=== PATIENT | female | born 1965 | race Caucasian/White ===

== ENCOUNTER 2016-12-17 12:54 | Emergency (ER) | payer OTHER ==
[~2016-12-17] VITALS: Ht 172.7 cm; Wt 70.3 kg
[~2016-12-17 12:54] MED LIST: CODEINE PHOSPHA1 TAB PO; FLAGYL IV; FLAGYL250 MG PO; LEVAQUIN750 MG PO; METFORMIN500 MG PO; PREVACID30 MG PO; TOPAMAX25 MG PO; ZOCOR20 MG PO
[2016-12-17 12:59] VITALS: BP 133/82
--- NOTE | 2016-12-17 13:00 | NUR ---
PATIENT PRESENTS TO ED WITH C/O OF CHEST PAIN AND HEADACHE . DENIES N/V/D; SKIN IS PINK/WARM/DRY; AAOX4 WITH EVEN AND STEADY GAIT; LUNGS CLEAR BL; HR EVEN AND REGULAR; PT DENIES ANY FEVER SOB, OR COUGH AT THIS TIME; PATIENT STATES PAIN OF 9/10 AT THIS TIME; VSS; PATIENT POSITIONED FOR COMFORT; HOB ELEVATED; BEDRAILS UP X2; BED DOWN. ER MD MADE AWARE OF PT STATUS.
[2016-12-17] MEDS ORDERED: ASPIRIN 81 MG TAB.CHEW PO ONE (14:10)
[2016-12-17] MEDS ORDERED: fentaNYL 0.05 MG/ML VIAL IVP ONE (15:15)
[2016-12-17] MEDS ORDERED: NACL 0.9% 1,000 ML IV ONE (15:15)
--- NOTE | 2016-12-17 15:59 | NUR ---
PATIENT LEFT FOR CT
[2016-12-17 18:20] VITALS: BP 122/69
--- NOTE | 2016-12-17 18:20 | NUR ---
Patient discharged with v/s stable. Written and verbal after care instructions given and explained. Patient alert, oriented and verbalized understanding of instructions. Ambulatory with steady gait. All questions addressed prior to discharge. ID band removed. Patient advised to follow up with PMD. Rx of OMEPRAZOLE AND TRAMADOL given. Patient educated on indication of medication including possible reaction and side effects. Opportunity to ask questions provided and answered.
== END 2016-12-17 18:20 | disposition home or self-care (01) ==
LOC: MED 12:54
DX: K29.70 Gastritis, unspecified, without bleeding (principal); R03.0 Elevated blood-pressure reading, without diagnosis of hypertension; E11.9 Type 2 diabetes mellitus without complications; Z88.8 Allergy status to other drugs, medicaments and biological substances
CPT/HCPCS: 36415; 71010; 71250; 74150; 80053; 84484; 85025; 85610; 85730; 93005; 96361; 96374; 99285; J3010; J7030

== ENCOUNTER 2017-02-20 21:25 | Emergency (ER) | payer OTHER ==
[~2017-02-20] VITALS: Ht 172.7 cm; Wt 78.5 kg
[~2017-02-20 21:25] MED LIST changes: -CODEINE PHOSPHA1 TAB PO; -FLAGYL IV; -FLAGYL250 MG PO; +LANS30EC3 PO; -LEVAQUIN750 MG PO; +LEVO750T2 PO; +METF500T64 PO; -METFORMIN500 MG PO; +METR250T2 PO; -PREVACID30 MG PO; +SIMV20TA1 PO; -TOPAMAX25 MG PO; +TOPI25TA10 PO; -ZOCOR20 MG PO; +[UNRECOGNIZED DRUG - CODE] IV
[2017-02-20 21:31] VITALS: BP 94/61
[2017-02-20 22:17] LABS: BASOPHILS % (AUTO) 0.5 % (0.0-2.0); EOSINOPHILS # (AUTO) 0.3 K/uL (0-0.4); EOSINOPHILS % (AUTO) 3.3 % (0.0-4.0); HEMATOCRIT 41.7 % (36-48); HEMOGLOBIN 13.9 g/dL (12.0-16.0); LYMPHOCYTES # (AUTO) 1.8 K/uL (2.5-16.5); LYMPHOCYTES % (AUTO) 19.6 % (20.5-51.1); MEAN CORPUSCULAR HEMOGLOBIN 32 pg (27-31); MEAN CORPUSCULAR HGB CONC 33 g/dL (33-37); MEAN CORPUSCULAR VOLUME 94 fL (80-94); MONOCYTES # (AUTO) 0.5 K/uL (0.8-1.0); MONOCYTES % (AUTO) 5.2 % (1.7-9.3); NEUTROPHILS # (AUTO) 6.7 K/uL (1.8-7.7); NEUTROPHILS % (AUTO) 71.4 % (42.2-75.2); PLATELET COUNT (AUTO) 219 K/uL (140-450); RED BLOOD CELL COUNT(AUTO) 4.42 MIL/uL (4.20-5.40); RED CELL DISTRIBUTION WIDTH 12.4 % (11.6-13.7); WHITE BLOOD COUNT (AUTO) 9.3 K/uL (4.8-10.8)
[2017-02-20 22:29] LABS: APPEARANCE,URINE CLEAR (CLEAR); BILIRUBIN,URINE NEGATIVE (NEGATIVE); BLOOD, URINE NEGATIVE (NEGATIVE); COLOR,URINE YELLOW (YELLOW); LEUKOCYTE ESTERASE ,URINE NEGATIVE (NEGATIVE); NITRITE, URINE NEGATIVE (NEGATIVE); PROTEIN,URINE NEGATIVE (NEGATIVE); UGLUCOSE NEGATIVE (NEGATIVE); UROBILINOGEN,URINE 0.2 EU/dL (0.2 - 1)
[2017-02-20 22:32] LABS: ANION GAP 15.3 (8-16); CALCIUM 8.6 mg/dL (8.5-10.1); CARBON DIOXIDE 24.2 mmol/L (21-32); CREATININE 0.9 mg/dL (0.6-1.3); POTASSIUM 3.5 mmol/L (3.5-5.1)
[2017-02-20 22:38] LABS: ALBUMIN 3.8 g/dL (3.4-5.0); TOTAL BILIRUBIN 0.5 mg/dL (0.0-1.0); TOTAL PROTEIN, SERUM 7.9 g/dL (6.4-8.2)
[2017-02-20 22:50] LABS: RBC,URINE 0-5 (RARE) /HPF (0-5)
[2017-02-20 22:51] LABS: BACTERIA,URINE OCCASSIONAL /HPF (None Seen); MUCUS,URINE 1+ /LPF (None Seen)
--- NOTE | 2017-02-21 01:03 | NUR ---
TO ER BED 4
[2017-02-21] MEDS ORDERED: KETOROLAC 60 MG/2 ML VIAL IM ONE (02:00)
[2017-02-21] MEDS ORDERED: ONDANSETRON 4 MG ODT PO ONE (02:00)
[2017-02-21 02:41] VITALS: BP 102/50
--- NOTE | 2017-02-21 02:41 | NUR ---
Patient discharged with v/s stable. Written and verbal after care instructions given and explained. Patient alert, oriented and verbalized understanding of instructions. Ambulatory with steady gait. All questions addressed prior to discharge. ID band removed. Patient advised to follow up with PMD. Rx of ZOFRAN/MOTRIN/CIPRO/NORCO AND IMMODIUM given. Patient educated on indication of medication including possible reaction and side effects. Opportunity to ask questions provided and answered.
== END 2017-02-21 02:41 | disposition home or self-care (01) ==
LOC: MED 21:25
DX: R10.13 Epigastric pain (principal); R11.2 Nausea with vomiting, unspecified; R19.7 Diarrhea, unspecified; E11.9 Type 2 diabetes mellitus without complications; Z88.8 Allergy status to other drugs, medicaments and biological substances
CPT/HCPCS: 36415; 74176; 80053; 81001; 81025; 82948; 83690; 85025; 87086; 96372; 99285; J1885; S0119

== ENCOUNTER 2018-02-13 23:30 | Emergency (ER) | payer OTHER ==
[~2018-02-13] VITALS: Ht 172.7 cm; Wt 83.0 kg
[~2018-02-13 23:30] MED LIST changes: +ATOR10TA PO; +GLU500 PO; -LANS30EC3 PO; -LEVO750T2 PO; -METF500T64 PO; -SIMV20TA1 PO; +TOP100 PO; -TOPI25TA10 PO; -[UNRECOGNIZED DRUG - CODE] IV
[2018-02-13 23:36] VITALS: BP 118/72
--- NOTE | 2018-02-13 23:48 | NUR ---
TO ER BED 02
--- NOTE | 2018-02-13 23:50 | NUR ---
PATIENT IS A 52 Y/O FEMALE WHO PRESENTS TO THE ED C/O ABD PAIN. PT STATES THAT HER STOMACH HAS BEEN BOTHERING HER FOR 2 WEEKS. PT REPORTS 10/10 ACHING DIFFUSE ABD PAIN THAT RADIATES TO THE BACK. PT DENIES CP, SOB, REPORTS N/V/D. PT AAOX4, RR EVEN/UNLABORED. PT REPOSITIONED FOR COMFORT, BED IN LOWEST POSITION. ER MD DR. MARTINEZ NOTIFIED. WILL CONTINUE TO MONITOR.
[2018-02-13] MEDS ORDERED: NACL 0.9% 1,000 ML IV SCH (23:57)
[2018-02-14] MEDS ORDERED: ONDANSETRON 4 MG/2 ML VIAL IVP ONE
[2018-02-14] MEDS ORDERED: KETOROLAC 30 MG/ML VIAL IVP ONE
--- NOTE | 2018-02-14 00:05 | NUR ---
Rafi salas in ED - 02/14/18 at [id number] [facility] [place] FOR TRANSPORT REPORT AT [id number]. ON HOLD FOR 30MIN. WILL ATTEMT ANOTHER CALL
--- NOTE | 2018-02-14 00:08 | NUR ---
Rafi salas in [facility] - 02/14/18 at 0021 by [id number] [place] [facility] [place]. CALL DISCONNECTED AFTER BEING PLACED ON HOLD. WILL ATTEMTTO CALL AGAIN
[2018-02-14 00:14] LABS: BASOPHILS % (AUTO) 0.6 % (0.0-2.0); EOSINOPHILS # (AUTO) 0.2 K/uL (0-0.4); EOSINOPHILS % (AUTO) 2.7 % (0.0-4.0); HEMATOCRIT 39.8 % (36-48); HEMOGLOBIN 13.7 g/dL (12.0-16.0); LYMPHOCYTES # (AUTO) 1.7 K/uL (2.5-16.5); LYMPHOCYTES % (AUTO) 23.8 % (20.5-51.1); MEAN CORPUSCULAR HEMOGLOBIN 33 pg (27-31); MEAN CORPUSCULAR HGB CONC 34 g/dL (33-37); MEAN CORPUSCULAR VOLUME 96.4 fL (80-94); MONOCYTES # (AUTO) 0.5 K/uL (0.8-1.0); NEUTROPHILS # (AUTO) 4.7 K/uL (1.8-7.7); NEUTROPHILS % (AUTO) 65.9 % (42.2-75.2); PLATELET COUNT (AUTO) 168 K/uL (140-450); RED BLOOD CELL COUNT(AUTO) 4.12 MIL/uL (4.20-5.40); WHITE BLOOD COUNT (AUTO) 7.2 K/uL (4.8-10.8)
[2018-02-14 00:14] LABS: APPEARANCE,URINE HAZY (CLEAR); BILIRUBIN,URINE NEGATIVE (NEGATIVE); BLOOD, URINE NEGATIVE (NEGATIVE); COLOR,URINE YELLOW (YELLOW); LEUKOCYTE ESTERASE ,URINE NEGATIVE (NEGATIVE); NITRITE, URINE NEGATIVE (NEGATIVE); UGLUCOSE 3+ (NEGATIVE)
--- NOTE | 2018-02-14 00:15 | NUR ---
PATIENT TAKEN TO CT VIA WHEELCHAIR WITH TECH.
[2018-02-14 00:23] LABS: RBC,URINE 0-5 (RARE) /HPF (0-5)
--- NOTE | 2018-02-14 00:25 | NUR ---
PATIENT RETURN FROM CT.
[2018-02-14 00:33] LABS: ANION GAP 15.5 (8-16); POTASSIUM 3.5 mmol/L (3.5-5.1)
[2018-02-14 00:40] LABS: ALBUMIN 3.7 g/dL (3.4-5.0); TOTAL BILIRUBIN 0.4 mg/dL (0.0-1.0)
[2018-02-14] MEDS ORDERED: MORPHINE SULFATE 4 MG/ML SYR IVP ONE (01:05)
[2018-02-14 01:57] VITALS: BP 125/79
--- NOTE | 2018-02-14 01:57 | NUR ---
Patient discharged with v/s stable. Written and verbal after care instructions given and explained. Patient alert, oriented and verbalized understanding of instructions. Ambulatory with steady gait. All questions addressed prior to discharge. ID band removed. Patient advised to follow up with PMD. Rx of ZOFRAN 8MG, NORCO 5MG-325MG AND MOTRIN 800MG given. Patient educated on indication of medication including possible reaction and side effects. Opportunity to ask questions provided and answered.
== END 2018-02-14 01:57 | disposition home or self-care (01) ==
LOC: MED 23:30
DX: N83.202 Unspecified ovarian cyst, left side (principal); E11.9 Type 2 diabetes mellitus without complications; Z90.89 Acquired absence of other organs; Z88.8 Allergy status to other drugs, medicaments and biological substances
CPT/HCPCS: 36415; 74176; 80053; 81001; 81025; 83690; 85025; 87086; 96361; 96374; 96375; 99285; J1885; J2270; J2405; J7030

== ENCOUNTER 2018-05-20 22:09 | Emergency (ER) | payer OTHER ==
[~2018-05-20] VITALS: Ht 172.7 cm; Wt 81.6 kg
[2018-05-20 22:11] VITALS: BP 114/79
--- NOTE | 2018-05-20 22:13 | NUR ---
TO BED # 4 AMBULATORY , REPORT GIVEN TO MATT CHRISTIANSON
--- NOTE | 2018-05-20 22:15 | NUR ---
ASSUMED CARE OF PT AT THIS TIME. C/O DIFFUSE LOWER ABDOMINAL PAIN W/ INTERMITTENT N/V X 3 WEEKS. AAOX4 WITH EVEN AND STEADY GAIT; PATIENT STATES PAIN OF 9/10 AT THIS TIME; VSS; PATIENT POSITIONED FOR COMFORT; HOB ELEVATED; BEDRAILS UP X2; BED DOWN. ER MD MADE AWARE OF PT STATUS. WILL CONTINUE TO MONITOR.
--- NOTE | 2018-05-20 22:25 | NUR ---
Dr. Bui evaluating patient at bedside.
[2018-05-20] MEDS ORDERED: NACL 0.9% 500 ML IV ONE (22:27)
[2018-05-20] MEDS ORDERED: KETOROLAC 30 MG/ML VIAL IVP ONE (22:30)
[2018-05-20] MEDS ORDERED: ONDANSETRON 4 MG/2 ML VIAL IVP ONE (22:30)
--- NOTE | 2018-05-20 22:38 | NUR ---
PT TAKEN TO CT
--- NOTE | 2018-05-20 22:48 | NUR ---
PT RETURN FROM CT
[2018-05-20 23:20] LABS: BASOPHILS % (AUTO) 0.4 % (0.0-2.0); EOSINOPHILS # (AUTO) 0.2 K/uL (0-0.4); EOSINOPHILS % (AUTO) 2.4 % (0.0-4.0); HEMOGLOBIN 13.3 g/dL (12.0-16.0); LYMPHOCYTES # (AUTO) 3.2 K/uL (2.5-16.5); LYMPHOCYTES % (AUTO) 36.2 % (20.5-51.1); MEAN CORPUSCULAR HEMOGLOBIN 33 pg (27-31); MEAN CORPUSCULAR HGB CONC 34 g/dL (33-37); MEAN CORPUSCULAR VOLUME 95.6 fL (80-94); MONOCYTES # (AUTO) 0.6 K/uL (0.8-1.0); MONOCYTES % (AUTO) 6.4 % (1.7-9.3); NEUTROPHILS # (AUTO) 4.8 K/uL (1.8-7.7); NEUTROPHILS % (AUTO) 54.6 % (42.2-75.2); PLATELET COUNT (AUTO) 192 K/uL (140-450); RED BLOOD CELL COUNT(AUTO) 4.08 MIL/uL (4.20-5.40); RED CELL DISTRIBUTION WIDTH 13.4 % (11.6-13.7); WHITE BLOOD COUNT (AUTO) 8.8 K/uL (4.8-10.8)
[2018-05-20 23:32] LABS: ANION GAP 13.5 (8-16); CREATININE 1.1 mg/dL (0.6-1.3); POTASSIUM 3.5 mmol/L (3.5-5.1)
[2018-05-20 23:44] LABS: ALBUMIN 3.9 g/dL (3.4-5.0); TOTAL BILIRUBIN 0.4 mg/dL (0.0-1.0)
[2018-05-21 00:15] VITALS: BP 110/78
--- NOTE | 2018-05-21 00:15 | NUR ---
Patient discharged with v/s stable. Written and verbal after care instructions given and explained. Patient alert, oriented and verbalized understanding of instructions. Ambulatory with steady gait. All questions addressed prior to discharge. ID band removed. Patient advised to follow up with PMD. Rx of MINERAL OIL AND MIRALAX given. Patient educated on indication of medication including possible reaction and side effects. Opportunity to ask questions provided and answered.
== END 2018-05-21 00:15 | disposition home or self-care (01) ==
LOC: MED 22:09
DX: R10.9 Unspecified abdominal pain (principal); R19.7 Diarrhea, unspecified; R11.10 Vomiting, unspecified; Z79.899 Other long term (current) drug therapy; Z88.8 Allergy status to other drugs, medicaments and biological substances
CPT/HCPCS: 36415; 74176; 80053; 81002; 81025; 83690; 85025; 96374; 96375; 99285; J1885; J2405; 96361

== ENCOUNTER 2019-01-24 12:58 | Emergency (ER) | payer OTHER ==
[~2019-01-24] VITALS: Ht 172.7 cm; Wt 79.4 kg
--- NOTE | 2019-01-24 13:10 | NUR ---
PT AMBULATES TO BED 8
[2019-01-24 13:12] VITALS: BP 108/75
--- NOTE | 2019-01-24 13:25 | NUR ---
AAO X 4 53 YR OLD F PT C/O ABDOMINAL PAIN 10/ GENERAL ABDOMINAL REGION, ADMITS NVD STARTED YESTERDAY. HX OF DIVERTICULITIS AND ILEUS.
[2019-01-24] MEDS ORDERED: NACL 0.9% 1,000 ML IV ONE (14:18)
[2019-01-24] MEDS ORDERED: NACL 0.9% 1,000 ML IV SCH (14:18)
[2019-01-24] MEDS ORDERED: ONDANSETRON 4 MG/2 ML VIAL IVP ONE (14:20)
[2019-01-24] MEDS ORDERED: KETOROLAC 30 MG/ML VIAL IVP ONE (14:20)
[2019-01-24 14:34] LABS: BARBITURATE, URINE NEG. ng/ml (NEG <=200); BENZODIAZEPINE, URINE NEG. ng/mL (NEG <=200); CANNABINOID, URINE NEG. ng/mL (NEG <=50); COCAINE, URINE NEG. ng/mL (NEG <=300); OPIATE, URINE NEG. ng/mL (NEG <=2000); PHENCYCLIDINE SCREEN,URINE NEG. ng/mL (NEG <=25)
[2019-01-24 14:35] LABS: APPEARANCE,URINE CLEAR (CLEAR); BILIRUBIN,URINE NEGATIVE (NEGATIVE); BLOOD, URINE NEGATIVE (NEGATIVE); COLOR,URINE YELLOW (YELLOW); LEUKOCYTE ESTERASE ,URINE NEGATIVE (NEGATIVE); NITRITE, URINE NEGATIVE (NEGATIVE); PH,URINE 5.5 (5.0-9.0); UGLUCOSE NEGATIVE (NEGATIVE)
[2019-01-24 14:53] LABS: BASOPHILS % (AUTO) 0.2 % (0.0-2.0); EOSINOPHILS # (AUTO) 0.3 K/uL (0-0.4); EOSINOPHILS % (AUTO) 2.7 % (0.0-4.0); HEMATOCRIT 41.8 % (36-48); HEMOGLOBIN 14.3 g/dL (12.0-16.0); LYMPHOCYTES # (AUTO) 1.4 K/uL (2.5-16.5); LYMPHOCYTES % (AUTO) 12.7 % (20.5-51.1); MEAN CORPUSCULAR HEMOGLOBIN 33 pg (27-31); MEAN CORPUSCULAR HGB CONC 34 g/dL (33-37); MEAN CORPUSCULAR VOLUME 95.8 fL (80-94); MONOCYTES # (AUTO) 0.5 K/uL (0.8-1.0); MONOCYTES % (AUTO) 4.7 % (1.7-9.3); NEUTROPHILS # (AUTO) 8.7 K/uL (1.8-7.7); NEUTROPHILS % (AUTO) 79.7 % (42.2-75.2); PLATELET COUNT (AUTO) 194 K/uL (140-450); RED BLOOD CELL COUNT(AUTO) 4.37 MIL/uL (4.20-5.40); RED CELL DISTRIBUTION WIDTH 12.6 % (11.6-13.7)
[2019-01-24 15:42] LABS: ANION GAP 16.7 (8-16); CARBON DIOXIDE 21.2 mmol/L (21-32); CHLORIDE 105 mmol/L (98-107); CREATININE 0.7 mg/dL (0.6-1.3); GFR ARICAN-AMERICAN 113 mL/min (>90); GLUCOSE 229 mg/dL (74-106); POTASSIUM 3.9 mmol/L (3.5-5.1); SODIUM SERUM 139 mmol/L (136-145); UREA NITROGEN, BLOOD 13 mg/dL (7-18)
[2019-01-24 15:48] LABS: ALBUMIN 3.6 g/dL (3.4-5.0); AMYLASE 80 U/L (25-115); ASPARTATE AMINOTRANSFERASE 25 U/L (15-37); GAMMA GLUTAMYL TRANSFERASE 69 U/L (7-51); LIPASE 903 U/L (73-393); MAGNESIUM 1.8 mg/dL (1.8-2.4); TOTAL BILIRUBIN 0.5 mg/dL (0.0-1.0)
[2019-01-24 18:00] VITALS: BP 115/76
--- NOTE | 2019-01-24 18:00 | NUR ---
Patient discharged with v/s stable. Written and verbal after care instructions given and explained. Patient alert, oriented and verbalized understanding of instructions. Ambulatory with steady gait. All questions addressed prior to discharge. ID band removed. Patient advised to follow up with PMD. Rx of Ginna Bazan given. Patient educated on indication of medication including possible reaction and side effects. Opportunity to ask questions provided and answered.
== END 2019-01-24 18:00 | disposition home or self-care (01) ==
LOC: MED 12:58
DX: K85.90 Acute pancreatitis without necrosis or infection, unspecified (principal); K52.9 Noninfective gastroenteritis and colitis, unspecified; E86.0 Dehydration; E11.9 Type 2 diabetes mellitus without complications; Z79.84 Long term (current) use of oral hypoglycemic drugs; Z79.899 Other long term (current) drug therapy; Z88.8 Allergy status to other drugs, medicaments and biological substances
CPT/HCPCS: 36415; 74176; 76705; 80053; 80305; 81003; 81025; 82150; 82977; 83690; 83735; 84484; 85025; 96361; 96374; 96375; 99284; G0482; J1885; J2405; Q0092; 93005

== ENCOUNTER 2019-02-13 20:17 | Emergency (ER) | payer OTHER ==
[~2019-02-13] VITALS: Ht 165.1 cm; Wt 82.7 kg
[2019-02-13 20:22] VITALS: BP 117/75
--- NOTE | 2019-02-13 21:03 | NUR ---
PT AMBULATED TO BED 1.
--- NOTE | 2019-02-13 21:03 | NUR ---
PT PRESENTS TO ED WITH RIGHT ARM SHOULDER PAIN THROGUHOUT X2 DAYS. DENIES INJURY. 06/11 PAIN. CMS INTACT BILAT UPPER EXTREMITIES. NO DEFORMITIES. VSS. POSITIONED IN BED FOR COMFORT. ER MD AWARE. CONTINUE TO MONITOR.
[2019-02-13] MEDS ORDERED: KETOROLAC 30 MG/ML VIAL IM ONE (21:50)
[2019-02-13] MEDS ORDERED: DIAZEPAM 5 MG TAB PO ONE (21:50)
--- NOTE | 2019-02-13 21:51 | NUR ---
SLING SIZE LARGE PLACED ON PT R ARM
[2019-02-13 22:41] VITALS: BP 112/70
--- NOTE | 2019-02-13 22:41 | NUR ---
Patient discharged with v/s stable. Written and verbal after care instructions given and explained. Patient alert, oriented and verbalized understanding of instructions. Ambulatory with steady gait. All questions addressed prior to discharge. ID band removed. Patient advised to follow up with PMD. Rx of Naprosyn 500mg and Valium 5mg given. Patient educated on indication of medication including possible reaction and side effects. Opportunity to ask questions provided and answered.
== END 2019-02-13 22:41 | disposition home or self-care (01) ==
LOC: MED 20:17
DX: S46.912A Strain of unspecified muscle, fascia and tendon at shoulder and upper arm level, left arm, initial encounter (principal); M75.92 Shoulder lesion, unspecified, left shoulder; E11.9 Type 2 diabetes mellitus without complications; Z79.84 Long term (current) use of oral hypoglycemic drugs; Z79.899 Other long term (current) drug therapy; Z88.8 Allergy status to other drugs, medicaments and biological substances; X58.XXXA Exposure to other specified factors, initial encounter; Y93.89 Activity, other specified; Y92.89 Other specified places as the place of occurrence of the external cause; Y99.8 Other external cause status
CPT/HCPCS: 73030; 73090; 96372; 99283; J1885

== ENCOUNTER 2019-02-22 10:00 | Emergency (ER) | payer OTHER ==
[~2019-02-22] VITALS: Ht 170.2 cm; Wt 80.3 kg
--- NOTE | 2019-02-22 10:14 | NUR ---
PT AMBULATED TO ER BED 09
[2019-02-22 10:15] VITALS: BP 141/67
[2019-02-22] MEDS ORDERED: DULO60EC PO (10:31)
[2019-02-22] MEDS ORDERED: CIPR500T4 PO (10:31)
[2019-02-22] MEDS ORDERED: NACL 0.9% 1,000 ML IV SCH (10:34)
[2019-02-22] MEDS ORDERED: PANTOPRAZOLE 40 MG INJ VIAL IVP ONE (10:35)
[2019-02-22] MEDS ORDERED: ONDANSETRON 4 MG/2 ML VIAL IVP ONE (10:35)
[2019-02-22 10:57] LABS: APPEARANCE,URINE CLEAR (CLEAR); BILIRUBIN,URINE NEGATIVE (NEGATIVE); BLOOD, URINE NEGATIVE (NEGATIVE); COLOR,URINE YELLOW (YELLOW); LEUKOCYTE ESTERASE ,URINE 1+ (NEGATIVE); NITRITE, URINE NEGATIVE (NEGATIVE); UGLUCOSE 3+ (NEGATIVE)
[2019-02-22 10:57] LABS: BASOPHILS % (AUTO) 0.4 % (0.0-2.0); EOSINOPHILS # (AUTO) 0.3 K/uL (0-0.4); EOSINOPHILS % (AUTO) 5.4 % (0.0-4.0); HEMATOCRIT 40.5 % (36-48); HEMOGLOBIN 14.1 g/dL (12.0-16.0); LYMPHOCYTES # (AUTO) 1.3 K/uL (2.5-16.5); LYMPHOCYTES % (AUTO) 24.5 % (20.5-51.1); MEAN CORPUSCULAR HEMOGLOBIN 33 pg (27-31); MEAN CORPUSCULAR HGB CONC 35 g/dL (33-37); MEAN CORPUSCULAR VOLUME 94.8 fL (80-94); MONOCYTES # (AUTO) 0.3 K/uL (0.8-1.0); MONOCYTES % (AUTO) 5.8 % (1.7-9.3); NEUTROPHILS # (AUTO) 3.4 K/uL (1.8-7.7); NEUTROPHILS % (AUTO) 63.9 % (42.2-75.2); PLATELET COUNT (AUTO) 172 K/uL (140-450); RED BLOOD CELL COUNT(AUTO) 4.27 MIL/uL (4.20-5.40); RED CELL DISTRIBUTION WIDTH 12.6 % (11.6-13.7); WHITE BLOOD COUNT (AUTO) 5.3 K/uL (4.8-10.8)
--- NOTE | 2019-02-22 11:04 | NUR ---
BIB SELF C/O INGRAM, GENERALIZED ABDOMINAL PAIN, N/V/D X 2 DAYS. VOMITING AND DIARRHEA X 6 TODAY. DENIES BLOOD IN STOOL AND EMESIS. NO URINARY COMPLAINTS. PT A&OX4, BREATHING EVEN AND UNLABORED. NSR ON MONITOR. DENIES CP/SOB. AMBULATES WITH STEADY GAIT. SKIN WARM PINK, AND DRY.
[2019-02-22 11:07] LABS: ANION GAP 14.7 (8-16); CARBON DIOXIDE 22.1 mmol/L (21-32); CREATININE 0.8 mg/dL (0.6-1.3); POTASSIUM 3.8 mmol/L (3.5-5.1)
[2019-02-22 11:10] LABS: RBC,URINE 0-5 /HPF (0-5); WBC,URINE 0-5 /HPF (0-5)
[2019-02-22 11:13] LABS: ALBUMIN 3.7 g/dL (3.4-5.0); TOTAL BILIRUBIN 0.4 mg/dL (0.0-1.0)
[2019-02-22] MEDS ORDERED: MORPHINE SULFATE 2 MG/ML SYR IVP ONE (11:45)
[2019-02-22 12:46] VITALS: BP 111/70
--- NOTE | 2019-02-22 12:46 | NUR ---
Patient discharged with v/s stable. Written and verbal after care instructions given and explained. Patient alert, oriented and verbalized understanding of instructions. Ambulatory with steady gait. All questions addressed prior to discharge. ID band removed. Patient advised to follow up with PMD. Rx of OMEPRAZOLE AND ZOFRAN ODT given. Patient educated on indication of medication including possible reaction and side effects. Opportunity to ask questions provided and answered.
--- NOTE | 2019-02-23 13:07 | NUR ---
Late entry. Confirmed with RN that 1000 ml 0.9 NS IV bolus completed at 1210.
== END 2019-02-22 12:46 | disposition home or self-care (01) ==
LOC: MED 10:00
DX: K29.70 Gastritis, unspecified, without bleeding (principal); E11.9 Type 2 diabetes mellitus without complications; Z79.84 Long term (current) use of oral hypoglycemic drugs; Z90.49 Acquired absence of other specified parts of digestive tract; Z88.8 Allergy status to other drugs, medicaments and biological substances
CPT/HCPCS: 36415; 80053; 81001; 82948; 83690; 85025; 87086; 96361; 96374; 96375; 99283; C9113; J2270; J2405; J7030